=== PATIENT | male | born 1980 | race Caucasian/White ===

== ENCOUNTER 2019-03-16 19:16 | Emergency (ER) | payer SELFPAY ==
[2019-03-16 19:22] VITALS: BP 158/100; PULSE 95; RESP 18; TEMP 36.6; O2SAT 98
[2019-03-16 19:43] LABS: Add Manual Diff / Slide Review NO; Basophils Absolute Auto 0 /uL (0-100); Basophils Percent Auto 0.3 % (0-2); Eosinophils Absolute Auto 0 /uL (0-450); Eosinophils Percent Auto 0.4 % (2-4); Hematocrit 44.7 % (41-53); Hemoglobin 15.4 g/dL (13.5-17.5); Lymphocytes Absolute Auto 1200 /uL (1100-4500); Lymphocytes Percent Auto 11.6 % (25-40); Mean Corpuscular HGB Conc 34.5 % (30-36); Mean Corpuscular Hemoglobin 25.5 PG (26-34); Mean Corpuscular Volume 73.8 fL (80-100); Monocytes Absolute Auto 800 /uL (0-900); Monocytes Percent Auto 7.8 % (3-14); Neutrophils Absolute Auto 8600 /uL (1500-7000); Neutrophils Percent Auto 79.9 % (50-75); Platelet Count 390 X10^3/uL (150-400); Red Blood Cell Count 6.06 X10^6/uL (4.5-5.9); Red Cell Distribution Width 13.3 % (11.6-14.8); White Blood Cell Count 10.8 X10^3/uL (4.5-11.0)
[2019-03-16 19:49] LABS: INR 1.1 (0.9-1.3)
[2019-03-16] MEDS: ONDANSETRON 4 MG/2 ML INJ IV (19:51)
[2019-03-16 19:52] LABS: PTT Partial Thromboplastin Tim 37 SECONDS (26.4-36.2)
[2019-03-16 19:54] LABS: Alanine Aminotransferase 32 IU/L (<50); Albumin 4.9 g/dL (3.5-5.0); Albumin Globulin Ratio 1.4 (1.0-2.8); Alkaline Phosphatase 72 U/L (38-126); Aspartate Aminotransferase 26 IU/L (17-59); BUN Creatinine Ratio 14.4 (6-22); Bilirubin Total 0.7 mg/dL (0.2-1.3); Blood Urea Nitrogen 13 mg/dL (9-20); Calcium 9.9 mg/dL (8.4-10.2); Carbon Dioxide 25 mmol/L (22-32); Chloride 96 mmol/L (98-107); Estimated Glomerular Filt Rate > 60.0 mL/min (>60); Globulin 3.4 g/dL (1.7-4.1); Glucose 121 mg/dL (70-100); HEMOLYSIS 34 (0-50); Lipase 41 U/L (23-300); Sodium 135 mmol/L (137-145); Total Protein 8.3 g/dL (6.3-8.2)
--- NOTE | 2019-03-16 20:55 | ED_ITS ---
HPI - Abdominal Pain General Chief Complaint: Abdominal Pain Stated Complaint: ABD PAIN THREW UP SOME BROWN STUFF Time Seen by Provider: 03/16/19 20:34 Source: patient Mode of arrival: Ambulatory Limitations: no limitations History of Present Illness HPI narrative: 38-year-old gentleman presents with epigastric pain that's been present for 5 days waxing and waning but progressively getting worse. He describes it as epigastric radiating down toward his umbilicus and posteriorly. The pain will get severe enough that he will vomit and for the last 4 days has been having trouble keeping food down. He has had 4 episodes of emesis today. His describes the episodes as frothy and bile with no evidence of blood or coffee grounds. He has had regular bowel movements and no fevers or chills. No cough chest pain or palpitations. He notes that previously he has had problems with reflux and has been on proton pump inhibitors in the past. Today he notes that the pain is the same whether his stomach is empty for she has had something to drink or soup available. Related Data Home Medications Medication Instructions Recorded Confirmed levocetirizine [Allergy Relief 5 mg PO DAILY 03/16/19 03/16/19 (levocetirizin)] Previous Rx's Medication Instructions Recorded lidocaine HCl [Lidocaine Viscous] 1 applictn MM BID PRN #100 ml 03/16/19 ondansetron HCl [Zofran] 4 mg PO Q8H PRN #20 tab 03/16/19 Allergies Allergy/AdvReac Type Severity Reaction Status Date / Time Penicillins Allergy Unknown Verified 03/16/19 19:26 Review of Systems Review of Systems Narrative: All systems reviewed and are unremarkable except as noted in HPI and below Patient History Social History Smoking Status: Former smoker Smoking Status: Former smoker alcohol intake frequency: 0-2 drinks per day Substance Use Type: does not use Exam Narrative Exam Narrative: General: Healthy appearing, in no acute distress. Able to give a complete and coherent history. Well-nourished well-developed HEENT: Moist mucous membranes, normal sclera with reactive pupils, Neck: No JVD, supple Respiratory: Lungs are clear to auscultation, no wheezing no rales no rhonchi. Full and symmetrical air movement Cardiac: Regular rate and rhythm no murmurs no bruits Abdomen: Tender in the epigastrium without rebound or guarding. Soft, good bowel tones, no flank pain Skin: Warm and dry, no rashes Neurologic: Grossly neurologically intact with no obvious asymmetries or abnormalities Extremities: No trauma, well perfused Psych: Cooperative, appropriate insight and affect Initial Vital Signs Initial Vital Signs: Vital Signs Temperature 97.8 F 03/16/19 19:22 Pulse Rate 95 H 03/16/19 19:22 Respiratory Rate 18 03/16/19 19:22 Blood Pressure 158/100 H 03/16/19 19:22 Pulse Oximetry 98 03/16/19 19:22 Course Orders Ordered: ED Orders 03/16/19 21:52 Urine Microscopic Stat Discontinued Medications Acetaminophen (Tylenol) 975 mg PO NOW ONE Stop: 03/16/19 23:47 Last Admin: 03/17/19 00:10 Dose: 975 mg Documented by: MAYKEL Thomas Hydrox/Mg Hydrox/Simethicone 20 ml/ Lidocaine HCl 15 ml 0 ml PO NOW ONE Stop: 03/16/19 21:00 Last Admin: 03/16/19 21:04 Dose: 35 ml Documented by: VINCENT Thomas Hydrox/Mg Hydrox/Simethicone 20 ml/ Lidocaine HCl 15 ml 0 ml PO NOW ONE Stop: 03/16/19 23:47 Last Admin: 03/17/19 00:11 Dose: 35 ml Documented by: MAYKEL Sodium Chloride (Normal Saline 0.9%) 1,000 mls @ 1,000 mls/hr IV BOLUS ONE Stop: 03/16/19 21:57 Last Infusion: 03/16/19 22:29 Dose: 1,000 mls/hr Documented by: Admin: 03/16/19 21:04 Dose: 1,000 mls/hr Documented by: VINCENT Ondansetron HCl (Zofran) 4 mg IV NOW ONE Stop: 03/16/19 19:31 Last Admin: 03/16/19 19:51 Dose: 4 mg Documented by: MAYKEL Ondansetron HCl (Zofran) 4 mg IV NOW ONE Stop: 03/16/19 23:47 Last Admin: 03/17/19 00:10 Dose: 4 mg Documented by: MAYKEL Pantoprazole Sodium (Protonix) 40 mg IV NOW ONE Stop: 03/16/19 20:59 Last Admin: 03/16/19 21:04 Dose: 40 mg Documented by: [email or web address] Vital Signs Vital signs: Vital Signs - 8 hr 03/16/19 21:05 03/16/19 22:38 03/17/19 00:05 Temperature 98.4 F Pulse Rate 74 91 H 82 Respiratory Rate 16 14 Blood Pressure [Left Arm] 158/94 H 125/59 L 145/85 H Pulse Oximetry 97 97 98 MDM - Abdominal Pain Lab Data Result diagrams: 03/16/19 19:35 03/16/19 19:35 Labs: Lab Results 03/16/19 03/16/19 03/16/19 Range/Units 19:35 19:35 19:35 WBC 10.8 (4.5-11.0) X10^3/uL RBC 6.06 H (4.5-5.9) X10^6/uL Hgb 15.4 (13.5-17.5) g/dL Hct 44.7 (41-53) % MCV 73.8 L (80-100) fL MCH 25.5 L (26-34) PG MCHC 34.5 (30-36) % RDW 13.3 (11.6-14.8) % Plt Count 390 (150-400) X10^3/uL Neut % (Auto) 79.9 H (50-75) % Lymph % (Auto) 11.6 L (25-40) % [place] % (Auto) 7.8 (3-14) % Eos % (Auto) 0.4 L (2-4) % Baso % (Auto) 0.3 (0-2) % Neut # (Auto) 8600 H (9924-0429) /uL Lymph # (Auto) 1200 (5962-1077) /uL [place] # (Auto) 800 (0-900) /uL Eos # (Auto) 0 (0-450) /uL Baso # (Auto) 0 (0-100) /uL PT 13.0 H (10.1-12.7) SECONDS INR 1.1 (0.9-1.3) APTT 37 H (26.4-36.2) SECONDS Sodium 135 L (137-145) mmol/L Potassium 4.0 (3.4-5.1) mmol/L Chloride 96 L (98-107) mmol/L Carbon Dioxide 25 (22-32) mmol/L BUN 13 (9-20) mg/dL Creatinine 0.90 (0.66-1.25) mg/dL Estimated GFR > 60.0 (>60) mL/min BUN/Creatinine Ratio 14.4 (6-22) Glucose 121 H (70-100) mg/dL Calcium 9.9 (8.4-10.2) mg/dL Total Bilirubin 0.7 (0.2-1.3) mg/dL AST 26 (17-59) IU/L ALT 32 (<50) IU/L Alkaline Phosphatase 72 (38-126) U/L Total Protein 8.3 H (6.3-8.2) g/dL Albumin 4.9 (3.5-5.0) g/dL Globulin 3.4 (1.7-4.1) g/dL Albumin/Globulin Ratio 1.4 (1.0-2.8) Lipase 41 (23-300) U/L Urine RBC (0-5/HPF) Urine WBC (0-5/HPF) Ur Squamous Epith Cells (0-5/HPF) Urine Bacteria (None) Hyaline Casts (None) Granular Casts (None) Urine Mucus (Negative) Ur Culture Indicated? 03/16/19 Range/Units 21:52 WBC (4.5-11.0) X10^3/uL RBC (4.5-5.9) X10^6/uL Hgb (13.5-17.5) g/dL Hct (41-53) % MCV (80-100) fL MCH (26-34) PG MCHC (30-36) % RDW (11.6-14.8) % Plt Count (150-400) X10^3/uL Neut % (Auto) (50-75) % Lymph % (Auto) (25-40) % [place] % (Auto) (3-14) % Eos % (Auto) (2-4) % Baso % (Auto) (0-2) % Neut # (Auto) (5486-7076) /uL Lymph # (Auto) (5787-7420) /uL [place] # (Auto) (0-900) /uL Eos # (Auto) (0-450) /uL Baso # (Auto) (0-100) /uL PT (10.1-12.7) SECONDS INR (0.9-1.3) APTT (26.4-36.2) SECONDS Sodium (137-145) mmol/L Potassium (3.4-5.1) mmol/L Chloride (98-107) mmol/L Carbon Dioxide (22-32) mmol/L BUN (9-20) mg/dL Creatinine (0.66-1.25) mg/dL Estimated GFR (>60) mL/min BUN/Creatinine Ratio (6-22) Glucose (70-100) mg/dL Calcium (8.4-10.2) mg/dL Total Bilirubin (0.2-1.3) mg/dL AST (17-59) IU/L ALT (<50) IU/L Alkaline Phosphatase (38-126) U/L Total Protein (6.3-8.2) g/dL Albumin (3.5-5.0) g/dL Globulin (1.7-4.1) g/dL Albumin/Globulin Ratio (1.0-2.8) Lipase (23-300) U/L Urine RBC 10-30/hpf H (0-5/HPF) Urine WBC 0-1/hpf (0-5/HPF) Ur Squamous Epith Cells 0-1 /hpf (0-5/HPF) Urine Bacteria None seen (None) Hyaline Casts 0-1/lpf (None) Granular Casts 1-5/lpf (None) Urine Mucus 2+ H (Negative) Ur Culture Indicated? Cult not indicated Point of care testing: Urine Dip Bedside Urine Glucose Negative Bedside Urine Bilirubin - Negative Bedside Urine Ketone +++ 80 Urine Specific [place] 1.025 Bedside Urine Occult Blood ++ Bedside Urine pH 6.0 Bedside Urine Protein + 30 Bedside Urine Urobilinogen +/- 1mg Bedside Urine Nitrite - Negative Bedside Urine Leukocytes - Negative Esterase MDM Narrative Medical decision making narrative: 38-year-old gentleman presents with acute epigastric pain increasing over the last couple of days and a history of reflux in the past. Describes it as waves of pain. No evidence of infection, acute blood loss or acute surgical abdomen. Pain was significantly relieved with GI cocktail. He was treated with proton pump inhibitor IV in the emergency department and will restart b.i.d. dosing. Exam, labs and treatments all suggest gastric source of his pain without perforation. Suspect he is developing an ulcer or at least gastritis. Will follow-up with his primary care physician and anticipate need for GI referral. He is safe for home discharge Thank you for coming in today. Am sorry that your stomach is bothering you so much. Year history exam and labs all support the idea that you are developing an ulcer or at least gastritis. At this point there is no evidence of bleeding and this a few to go home. Please take 2 of the [id number] Nexium a day 1 in the morning, 1 in the evening. You can use Tylenol to help for the abdominal pain. Please avoid aspirin, Excedrin, ibuprofen and any other nonsteroidals. If you're having persistent nausea you can fill the Zofran prescription. You can also use viscous lidocaine with Maalox up to 2 to 3 times a day for severe pain Please make sure you follow-up with your primary care physician. He will very likely need a referral to a rehabilitation center manager . If you do feel like you're getting worse, have worsening abdominal pain began vomiting blood or noticing black stools please return to the emergency room for further evaluation Discharge Plan Departure Patient Disposition: Home Clinical Impression: Abdominal pain Qualifiers: Abdominal location: epigastric Qualified Code(s): R10.13 - Epigastric pain Gastric ulcer Qualifiers: Gastric ulcer chronicity: acute Gastric ulcer complication status: without hemorrhage or perforation Qualified Code(s): K25.3 - Acute gastric ulcer without hemorrhage or perforation Discharge Date/Time: 03/17/19 00:10 Instructions: DI for Peptic Ulcer Activity Restrictions/Additional Instructions: Thank you for coming in today. Am sorry that your stomach is bothering you so much. Year history exam and labs all support the idea that you are developing an ulcer or at least gastritis. At this point there is no evidence of bleeding and this a few to go home. Please take 2 of the [id number] Nexium a day 1 in the morning, 1 in the evening. You can use Tylenol to help for the abdominal pain. Please avoid aspirin, Excedrin, ibuprofen and any other nonsteroidals. If you're having persistent nausea you can fill the Zofran prescription. You can also use viscous lidocaine with Maalox up to 2 to 3 times a day for severe pain Please make sure you follow-up with your primary care physician. He will very likely need a referral to a rehabilitation center manager . If you do feel like you're getting worse, have worsening abdominal pain began vomiting blood or noticing black stools please return to the emergency room for further evaluation Prescriptions: New ondansetron HCl [Zofran] 4 mg tablet 4 mg PO Q8H PRN (Reason: nausea and vomiting) Qty: 20 RF: 0 Lidocaine Viscous 2 % solution 1 applictn MM BID PRN (Reason: pain) Qty: 100 RF: 3 No Action levocetirizine [Allergy Relief (levocetirizin)] 5 mg Tablet 5 mg PO DAILY RF: 0
[2019-03-16] MEDS: PANTOPRAZOLE 40 MG VIAL IV (21:04)
[2019-03-16] MEDS: SODIUM CHLORIDE 0.9% 1,000 ML 1000 ML IV (21:04)
[2019-03-16] MEDS: MAG HYDROX/ALUMINUM/SIMETH SUS 20 ML, LIDOCAINE VISCOUS 2% 15 ML PO (21:04)
[2019-03-16 21:05] VITALS: BP 158/94; PULSE 74; RESP 16; O2SAT 97
[2019-03-16 22:00] LABS: Bacteria Urine None Seen
[2019-03-16 22:08] LABS: Culture Indicated Urine Cult Not Indicated; Granular Casts Urine 1-5/LPF; Hyaline Casts Urine 0-1/LPF; Mucus Urine 2+ (Negative); RBC Urine 10-30/HPF (0-5/HPF); Squamous Epithelial Cell Urine 0-1 /HPF (0-5/HPF); WBC Urine 0-1/HPF (0-5/HPF)
[2019-03-16 22:38] VITALS: BP 125/59; PULSE 91; RESP 14; O2SAT 97
[2019-03-17 00:05] VITALS: BP 145/85; PULSE 82; TEMP 36.9; O2SAT 98
[2019-03-17] MEDS: ONDANSETRON 4 MG/2 ML INJ IV (00:10)
[2019-03-17] MEDS: ACETAMINOPHEN 325 MG TABLET 975 MG PO (00:10)
[2019-03-17] MEDS: MAG HYDROX/ALUMINUM/SIMETH SUS 20 ML, LIDOCAINE VISCOUS 2% 15 ML PO (00:11)
== END 2019-03-17 00:10 | disposition home or self-care (01) ==
PROVIDERS: Emergency Medicine; Emergency Provider Emergency Medicine
DX: R10.13 Epigastric pain (principal); K25.3 Acute gastric ulcer without hemorrhage or perforation
CPT/HCPCS: 36415; 80053; 81003; 81015; 83690; 85025; 85610; 85730; 96361; 96374; 96375; 96376; 99284; C9113; J2405